=== PATIENT | male | born 1975 | race Caucasian/White ===

== ENCOUNTER 2019-03-19 00:35 | Emergency (ER) | payer OTHER ==
[~2019-03-19 00:35] MED LIST: Atropine 0.1 MG/ML 10 ML Syringe ONE; EPINEPHrine 1:10,000 1 MG/10 ML Syringe ONE; Sodium Bicarbonate 8.4% 50 MEQ/50 ML Syringe ONE
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
--- NOTE | 2019-03-19 07:38 | CT ---
Noncontrast Head CT Technique: Multiple axial sections of the brain were obtained. Intravenous contrast was not utilized. Findings: Numerous fractures are seen. Fracture is noted within the left temporal bone extending into the mastoid sinus and into the middle ear cavity. Mastoid sinus fracture is displaced up to 5 mm. Fracture continues into the left temporal bone with displacement 3.6 mm. Fractures are seen within the calvarium within both posterior parietal regions which are comminuted. Fracture is seen within the frontal region. Fracture causes diastases of the sagittal suture. Right temporal bone fracture is seen which involves the mastoid sinus. There is probable involvement of the middle ear cavity. Blood is noted within both external and middle ear cavities. Blood is seen within the maxillary sinuses as well as ethmoid sinus and frontal sinus. Fractures are noted within the lateral orbital seth on both sides as well as extension of the fracture from the frontal bone into the right frontal sinus. This frontal sinus fracture shows displacement up to 4 mm with fractures involving both inner and outer tables. Fractures are seen within the posterior zygomatic arches which on the left side extends into the temporomandibular joint. Fracture partially visualized within the anterior right maxillary sinus. Extensive air is seen intracranially. Extensive subarachnoid blood is seen within the basal cisterns as well as within the sylvian fissure and within sulci within the convexities of both frontal, temporal and parietal regions. Findings much worse on the right side with lesser quantities of subarachnoid blood on the left side. Small subdural hematomas are seen measuring about 4 mm in thickness on the right and about 1.7 mm on the left. Blood is seen along the interhemispheric falx likely representing additional small subdural hematoma. There is blood being seen within the posterior fossa which is either anterior to the brainstem or possibly representing parenchymal hemorrhage into the brainstem. This area of hemorrhage measures approximately 7.7 mm. Diffuse intracranial swelling is seen. Impression: 1. Numerous displaced calvarial fractures with fractures extending of the mastoid sinuses and temporal bones. Possible extension into the middle ear cavities. 2. Fractures within both zygomatic arches which on the left side extends into the temporomandibular joint. 3. Lateral orbital fractures and anterior right maxillary fracture. 4. Extensive subarachnoid hemorrhage mostly on the right side. Bilateral small subdural hematomas are noted as well as small amount of blood along the intrahemispheric falx. 5. Small amount of blood either anterior to the brainstem or possibly representing small parenchymal hemorrhage into the brainstem. 6. Diffuse intracranial edema. Diagnostic code #5 I agree with preliminary report from [facility], finalized on 03/19/19, 3:37 AM Central Time
--- NOTE | 2019-03-19 07:39 | CT ---
CT cervical spine Technique: Multiple axial sections through the cervical spine were obtained. Reconstructed coronal and sagittal images were reviewed. Findings: Numerous calvarial fractures are seen with intracranial hemorrhage as described on head CT exam. Vertebral body heights and disc spaces are maintained. Air is noted within the cervical spine region within the thecal sac and extending into the neural foramina. This presumably is due to pneumocephalus extending from the brain. There is no cervical spine fracture being seen. No bony central or bony neural foraminal stenosis is seen. Small parenchymal density partially visualized within the left upper lung. This is most likely due to pulmonary contusion given the findings of other trauma. Endotracheal tube is present with inferior portion of the tip not seen on this exam. Impression: 1. No acute abnormality is appreciated within the cervical spine. 2. Pneumocephalus within the brain extending into the thecal sac of the cervical spine and into the neural foramina. 3. Possible small left upper lung pulmonary contusion. 4. Endotracheal tube, distal end not seen on the study. Diagnostic code #3 I agree with preliminary report from [facility], finalized on 03/19/19, 3:28 AM Central Time
== END 2019-03-19 03:00 | disposition expired ==
LOC: JD.ED 00:35 → EDBD 00:35 → JD.ED 03:00
DX: S06.6X9A Traumatic subarachnoid hemorrhage with loss of consciousness of unspecified duration, initial encounter (principal); S06.5X9A Traumatic subdural hemorrhage with loss of consciousness of unspecified duration, initial encounter; S02.119A Unspecified fracture of occiput, initial encounter for closed fracture; S02.19XA Other fracture of base of skull, initial encounter for closed fracture; S02.40FA Zygomatic fracture, left side, initial encounter for closed fracture; S02.40EA Zygomatic fracture, right side, initial encounter for closed fracture; S02.842A Fracture of lateral orbital wall, left side, initial encounter for closed fracture; S02.841A Fracture of lateral orbital wall, right side, initial encounter for closed fracture; V68.6XXA Passenger in heavy transport vehicle injured in noncollision transport accident in traffic accident, initial encounter; Y92.410 Unspecified street and highway as the place of occurrence of the external cause
CPT/HCPCS: 31500; 36415; 70450; 72125; 80053; 80320; 85025; 92950; 99285; G0390; J0171; J0461; G0480